=== PATIENT | female | born 1995 | race American Indian/Alaskan Native ===

== ENCOUNTER 2021-10-04 16:31 | Emergency (ER) | payer OTHER ==
[2021-10-04] MEDS ORDERED: ONDANSETRON 4 MG/2 ML INJ IM ONE (19:03)
[2021-10-04 19:27] LABS: Basophils # (Auto) 0.1 K/mm3 (0.0-0.1); Basophils % (Auto) 1.1 % (0.0-1.8); Eosinophils # (Auto) 0.2 K/mm3 (0.0-0.4); Eosinophils % (Auto) 2.2 % (0.0-4.3); Hematocrit 40.6 % (30.3-42.9); Hemoglobin 13.1 gm/dl (10.1-14.3); Lymphocytes # (Auto) 1.8 K/mm3 (1.2-5.4); Lymphocytes % (Auto) 25.6 % (13.4-35.0); Mean Corpuscular HGB Conc 32 % (30-34); Mean Corpuscular Volume 91 fl (79-97); Monocytes # (Auto) 0.5 K/mm3 (0.0-0.8); Monocytes % (Auto) 7.5 % (0.0-7.3); Platelet Count 256 K/mm3 (140-440); Red Blood Count 4.48 M/mm3 (3.65-5.03); Red Cell Distribution Width 16.4 % (13.2-15.2)
[2021-10-04 20:15] LABS: Bilirubin,Urine NEG (Negative); Blood,Urine NEG (Negative); Color,Urine Yellow (Yellow); Mucus,Urine 1+ /HPF; Urobilinogen,Urine < 2.0 mg/dL (<2.0); WBC,Urine < 1.0 /HPF (0.0-6.0)
--- NOTE | 2021-10-04 21:09 | Emergency Department Report ---
<NORBERTO HAND - Last Filed: 10/04/21 23:59> ED General Adult HPI - General Chief complaint: Vaginal Bleeding Stated complaint: VAGINAL BLEEDING Source: patient, EMS Mode of arrival: Stretcher Limitations: No Limitations - History of Present Illness Initial comments: Is a 26-year-old female who presents for vaginal bleeding x1 month. Patient is G3, P2, A0. Last menstrual cycle August 25, 2021. Patient denies fevers or chills there is 4/10 abdominal cramping bilateral lower. There is no nausea no vomiting. No back pain. Symptoms are exacerbated by activity and movement. Symptoms are relieved by nothing tried. Patient has not seen [facility] ED INSTRUCTOR to date. Patient denies other symptoms. - Related Data Previous Rx's Medication Instructions Recorded Last Taken Type Doxylamine Succinate/Vit B6 1 each PO Q8H PRN #30 tab 10/05/21 Unknown Rx [Diclegis Dr 10-10 mg Tablet] Allergies Allergy/AdvReac Type Severity Reaction Status Date / Time No Known Allergies Allergy Verified 10/04/21 16:39 ED Review of Systems Constitutional: see HPI Eyes: denies: eye pain, eye discharge, vision change ENT: denies: ear pain, throat pain Respiratory: denies: cough, shortness of breath, wheezing Cardiovascular: denies: chest pain, palpitations Endocrine: no symptoms reported Gastrointestinal: abdominal pain (Bilateral lower). denies: nausea, vomiting, diarrhea, constipation, melena Genitourinary: other (Vaginal bleeding). denies: urgency, dysuria, frequency, hematuria, discharge Musculoskeletal: denies: back pain, joint swelling, arthralgia Skin: denies: rash, lesions Neurological: denies: headache, weakness, paresthesias, vertigo Psychiatric: as per HPI Hematological/Lymphatic: denies: easy bleeding, easy bruising ED Past Medical Hx - Medications Home Medications: Home Medications Medication Instructions Recorded Confirmed Last Taken Type Doxylamine Succinate/Vit B6 1 each PO Q8H PRN #30 tab 10/05/21 Unknown Rx [Diclegis Dr 10-10 mg Tablet] ED Physical Exam - General Limitations: No Limitations General appearance: alert, in no apparent distress - Head Head exam: Present: normocephalic, normal inspection - Eye Eye exam: Present: EOMI Pupils: Present: normal accommodation - ENT ENT exam: Present: mucous membranes moist - Neck Neck exam: Present: normal inspection, full ROM. Absent: tenderness - Respiratory Respiratory exam: Present: normal lung sounds bilaterally. Absent: respiratory distress, wheezes, stridor - Cardiovascular Cardiovascular Exam: Present: regular rate, normal rhythm, normal heart sounds. Absent: systolic murmur, diastolic murmur, rubs, gallop - GI/Abdominal GI/Abdominal exam: Absent: distended, tenderness - Rectal Rectal exam: Present: deferred - External exam: Present: other (Deferred per patient) - Extremities Exam Extremities exam: Present: normal inspection, full ROM, normal capillary refill. Absent: tenderness, pedal edema - Back Exam Back exam: Present: normal inspection, full ROM. Absent: CVA tenderness (R), CVA tenderness (L) - Neurological Exam Neurological exam: Present: alert, oriented X3, CN II-XII intact, normal gait, reflexes normal - Expanded Neurological Exam Expanded Patient oriented to: Present: person, place, time Speech: Present: fluid speech Motor strength exam: RUE: 5, LUE: 5, RLE: 5, LLE: 5 Best Eye Response ([place]): (4) open spontaneously Best Motor Response ([place]): (6) obeys commands Best Verbal Response ([place]): (5) oriented [place] Total: 15 - Psychiatric Psychiatric exam: Present: normal affect, normal mood - Skin Skin exam: Present: warm, dry, intact, normal color. Absent: rash ED Medical Decision Making - Lab Data Result diagrams: 10/04/21 18:53 Labs 10/04/21 10/04/21 10/04/21 18:53 18:53 Unknown WBC 7.1 RBC 4.48 Hgb 13.1 Hct 40.6 MCV 91 MCH 29 MCHC 32 RDW 16.4 H Plt Count 256 Lymph % (Auto) 25.6 [place] % (Auto) 7.5 H Eos % (Auto) 2.2 Baso % (Auto) 1.1 Lymph # (Auto) 1.8 [place] # (Auto) 0.5 Eos # (Auto) 0.2 Baso # (Auto) 0.1 Seg Neutrophils % 63.6 Seg Neutrophils # 4.5 HCG, Quant 303192 H Urine Color Yellow Urine Turbidity Clear Urine pH 7.0 Ur Specific [place] 1.021 Urine Protein 30 mg/dl Urine Glucose (UA) Neg Urine Ketones Neg Urine Blood Neg Urine Nitrite Neg Urine Bilirubin Neg Urine Urobilinogen < 2.0 Ur Leukocyte Esterase Neg Urine WBC (Auto) < 1.0 Urine RBC (Auto) 1.0 U Epithel Cells (Auto) 15.0 H Urine Mucus 1+ - Radiology Data Radiology results: report reviewed, image reviewed ULTRASOUND OBSTETRIC INDICATION / CLINICAL INFORMATION: vag bleeding. - Clinical Gestational Age (GA) in weeks, days: 8, 6 TECHNIQUE: Transabdominal. COMPARISON: None available. FINDINGS: GESTATIONAL SAC: Well-defined oval shape and intrauterine in location. YOLK SAC: No significant abnormality. EMBRYO/FETUS: No significant abnormality. - [place]-Rump Length = 1.95 cm = 8, 4 weeks, days - Heart Rate, beats per minute (if present) = 138 UTERUS: Small crescentic hypoechoic collection along the posterior aspect of the gestational sac measuring 2.3 x 0.4 x 0.8 cm likely representing subchorionic hemorrhage. ADNEXA: No significant abnormality. FREE FLUID: None. ADDITIONAL FINDINGS: None. IMPRESSION: 1. Single, living intrauterine with estimated sonographic age of 8, 4 weeks, days. 2. Small subchorionic bleed. Signer Name: Lainey Meneses MD Signed: 10/04/2021 10:06 PM Workstation Name: [id number] Transcribed By: DT Dictated By: Barrera Meneses MD Electronically Authenticated By: aBrrera Meneses MD Signed Date/Time: 10/04/212205 DD/ 03 TD/TT: - Medical Decision Making Ultrasound OB single IUP 8 weeks 4 days, heart rate equals 138 bmpm, small subarachnoid bleed. Plan DC to home, follow-up with [facility] ED INSTRUCTOR in 1 to 2 days. Pelvic rest. Return to emergency department should symptoms worsen. Patient verbalized agreement understanding with discharge plan. Patient DC'd home in stable condition at this time. ED Disposition Clinical Impression: Vaginal bleeding during , Subarachnoid bleed Disposition: 01 HOME / SELF CARE / HOMELESS Is pt being admited?: No Does the pt Need Aspirin: No Condition: Stable Instructions: Vaginal Bleeding During , First Trimester, Activity Restriction During Additional Instructions: Take medications as prescribed, follow-up with your doctor in 1 to 2 days. Return to emergency department should symptoms worsen. Prescriptions: Doxylamine Succinate/Vit B6 [Diclegis Dr 10-10 mg Tablet] 1 each PO Q8H PRN #30 tab PRN Reason: Nausea and Vomiting Referrals: DOROTA HIRSCH MD [Primary Care Provider] - 2-3 Days Forms: Work/School Release Form(ED) Time of Disposition: 00:03 <JORDAN RENAE - Last Filed: 10/06/21 09:22> ED Review of Systems ROS: Stated complaint: VAGINAL BLEEDING Other details as noted in HPI ED Course Vital Signs 10/04/21 10/05/21 16:37 00:13 Temperature 98.4 F Pulse Rate 71 74 Respiratory 12 Rate Blood Pressure 112/71 117/75 [Left] O2 Sat by Pulse 98 100 Oximetry ED Medical Decision Making - Lab Data Result diagrams: 10/04/21 18:53 - Medical Decision Making I have reviewed the PA/PREVENTION RN's note and plan of care. I was available for consultation as needed at all times during the patient's visit in the emergency department but was not consulted on this case. Critical care attestation.: If time is entered above; I have spent that time in minutes in the direct care of this critically ill patient, excluding procedure time.
--- NOTE | 2021-10-04 22:10 | Ultrasound Report ---
ULTRASOUND OBSTETRIC INDICATION / CLINICAL INFORMATION: vag bleeding. - Clinical Gestational Age (GA) in weeks, days: 8, 6 TECHNIQUE: Transabdominal. COMPARISON: None available. FINDINGS: GESTATIONAL SAC: Well-defined oval shape and intrauterine in location. YOLK SAC: No significant abnormality. EMBRYO/FETUS: No significant abnormality. - [place]-Rump Length = 1.95 cm = 8, 4 weeks, days - Heart Rate, beats per minute (if present) = 138 UTERUS: Small crescentic hypoechoic collection along the posterior aspect of the gestational sac me[place] uring 2.3 x 0.4 x 0.8 cm likely representing subchorionic hemorrhage. ADNEXA: No significant abnormality. FREE FLUID: None. ADDITIONAL FINDINGS: None. IMPRESSION: 1. Single, living intrauterine with estimated sonographic age of 8, 4 weeks, days. 2. Small subchorionic bleed. Signer Name: Lainey Meneses MD Signed: 10/04/2021 10:06 PM Workstation Name: [id number]
[2021-10-05 00:13] VITALS: BP 117/75
== END 2021-10-05 00:13 | disposition home or self-care (01) ==
LOC: ED 16:31
DX: O46.91 Antepartum hemorrhage, unspecified, first trimester (principal); Z3A.08 8 weeks gestation of pregnancy
CPT/HCPCS: 36415; 76801; 81001; 84702; 85025; 96372; 99284; J2405